=== PATIENT | female | born 1965 ===

== ENCOUNTER 2018-01-26 12:44 | Emergency (ER) | payer OTHER ==
[2018-01-26 12:44] VITALS: BMI 29.9
[2018-01-26 13:09] VITALS: BP 144/85; PULSE 81; RESP 20; TEMP 98.2; O2SAT 98
--- NOTE | 2018-01-26 13:40 | C.PDOC ---
History Of Present Illness 52 year old female presents to the ED for evaluation of right hand pain which began two weeks ago. Patient has history of carpal tunnel syndrome and has had right wrist problems in the past. Patient states she recently changed jobs and her work requires constant repetitive motions. Patient describes an aching adn throbbing pain in her right wrist that sometimes extends to her hand and digits. Patient has been taking Ibuprofen without relief. She notes her hand appeared swollen yesterday and presents for further evaluation. She denies extremity numbness/weakness or direct trauma/injury to the site. Time Seen by Provider: 01/26/18 13:25 Chief Complaint (Nursing): Upper Extremity Problem/Injury History Per: Patient History/Exam Limitations: no limitations Onset/Duration Of Symptoms: Other (two weeks ) Current Symptoms Are (Timing): Still Present Quality: "Pain" Additional History Per: Patient Past Medical History Reviewed: Historical Data, Nursing Documentation, Vital Signs Vital Signs: Last Vital Signs Temp 98.2 F 01/26/18 13:06 Pulse 81 01/26/18 13:06 Resp 20 01/26/18 13:06 BP 144/85 01/26/18 13:06 Pulse Ox 98 01/26/18 13:06 - Medical History PMH: Diabetes, HTN, Hypercholesterolemia, Hypothyroidism Surgical History: No Surg Hx Family History: States: Unknown Family Hx - Social History Hx Alcohol Use: No Hx Substance Use: No Review Of Systems Musculoskeletal: Positive for: Hand Pain (right) Neurological: Negative for: Weakness, Numbness Physical Exam - Physical Exam Appears: Non-toxic, No Acute Distress Skin: Normal Color, Warm, Dry Extremity: No Normal ROM (limited range of motion seconary to pain with pronation and supination of right wrist ), Tenderness (to right wrist on palpation ), Capillary Refill (less than 2 seconds ), No Deformity, No Swelling Pulses: Left Radial: Normal, Right Radial: Normal Neurological/Psych: Oriented x3, Normal Speech, Normal Cognition, Normal Sensation ED Course And Treatment O2 Sat by Pulse Oximetry: 98 (on RA) Pulse Ox Interpretation: Normal Medical Decision Making Medical Decision Making: Impression: 52 year old female with right wrist pain that extends to hand and digits Plan: * Toradol IM * velcro volar splint Progress: Toradol IM given. Velcro volar splint was applied by research instrumentation technician and was checked by me. On reassessment, patient is resting comfortably, showing no signs of distress and reports an improvement in her pain. Patient is stable for discharge. She is advised to follow up with her PMD and orthopedic doctor within 1-2 days for fu rther evaluation. Disposition Counseled Patient/Family Regarding: Diagnosis, Need For Followup, Rx Given - Disposition Referrals: Efra Hernandez [Staff Provider] - Angel Montgomery III, MD [Staff Provider] - Jamal Bower MD [Staff Provider] - Fausto Garcia MD [Staff Provider] - Disposition: HOME/ ROUTINE Disposition Time: 13:40 Condition: STABLE Additional Instructions: clyde analgsicos segn sea necesario Seguimiento con especialista si el dolor persiste. Prescriptions: Naproxen [Naprosyn] 1 tab PO BID PRN #30 tab PRN Reason: Pain Instructions: Carpal Tunnel Syndrome (DC) Forms: [employer] (Japanese), Work Excuse Print Language: FRISIAN - POA Present On Arrival: None - Clinical Impression Clinical Impression: Carpal tunnel syndrome - PA / CLINICAL RESOURCE MANAGER / Resident Statement MD/DO has reviewed & agrees with the documentation as recorded. - Scribe Statement The provider has reviewed the documentation as recorded by the Scribe (Peyton Briscoe) All medical record entries made by the Scribe were at my direction and personally dictated by me. I have reviewed the chart and agree that the record accurately reflects my personal performance of the history, physical exam, medical decision making, and the department course for this patient. I have also personally directed, reviewed, and agree with the discharge instructions and disposition.
== END 2018-01-26 14:31 | disposition home or self-care (01) ==
LOC: C.ER 12:44
DX: G56.01 Carpal tunnel syndrome, right upper limb (principal)
CPT/HCPCS: 96372; 99284; J1885